=== PATIENT | male | born 1955 | race Caucasian/White ===

== ENCOUNTER → 2016-12-21 | Outpatient (CLI) | payer OTHER | LOC: FCPNEURO 21:30 | PROVIDERS: ATTEND Internal Medicine Sleep Medicine | DX: G47.31 Primary central sleep apnea (principal); G47.33 Obstructive sleep apnea (adult) (pediatric) ==

== ENCOUNTER 2017-01-17 19:19 | Emergency (ER) | payer OTHER ==
--- NOTE | 2017-01-17 19:30 | CPEKG ---
Heart Rate: 82 RR Interval: 732 P-R Interval: 208 QRSD Interval: 92 QT Interval: 376 QTC Interval: 439 P [place]: 65 QRS [place]: 54 T Wave [place]: 52 EKG Severity - ABNORMAL ECG - EKG Impression: SINUS RHYTHM EKG Impression: MULTIPLE ATRIAL PREMATURE COMPLEXES Electronically Signed By: Robert Pressley 17-Jan-2017 19:42:35
--- NOTE | 2017-01-17 19:39 | EDPHY ---
H & P Source: Patient - Personal History Current Tetanus/Diphtheria Vaccine: Unsure Current Tetanus Diphtheria and Acellular Pertussis (TDAP): Unsure - Medical/Surgical History Hx Asthma: No Hx Chronic Respiratory Disease: No Hx Diabetes: No Hx Cardiac Disease: No Hx Renal Disease: No Hx Cirrhosis: No Hx Alcoholism: No Hx HIV/AIDS: No Hx Splenectomy or Spleen Trauma: No Other PMH: back pain, anxiety - Family History Significant Family History: No pertinent family hx - Social History Smoking Status: Current every day smoker Alcohol Use: Sober Time Seen by Provider: 01/17/17 19:27 HPI/ROS: CHIEF COMPLAINT: Chest pain, nausea, abdominal pain, anxiety HISTORY OF PRESENT ILLNESS: Patient is a 61-year-old man with a history of anxiety who takes Ativan daily 1 mg morning evening for anxiety. He decided to try and taper himself off beginning on Sunday he has only been taking 0.5 mg in the evenings. He has felt more anxious and tremulous. He developed chest pain about 2 hours ago that resolved after about an hour. He denies shortness of breath. He has some nausea but has not vomited. He states that he said somewhat chronic abdominal pain. No fever. No cough. REVIEW OF SYSTEMS: Constitutional: denies: chills, fever, recent illness, recent injury EENTM: denies: blurred vision, double vision, nose congestion Respiratory: denies: cough, shortness of breath Cardiac: See HPI Gastrointestinal/Abdominal: See HPI denies: diarrhea, nausea, vomiting, blood streaked stools Genitourinary: denies: dysuria, frequency, hematuria, pain Musculoskeletal: denies: joint pain, muscle pain Skin: denies: lesions, rash, jaundice, bruising Neurological: denies: headache, numbness, paresthesia, tingling, dizziness, weakness Hematologic/Lymphatic: denies: blood clots, easy bleeding, easy bruising Immunologic/allergic: denies: HIV/AIDS, transplant EXAM: GENERAL: Tremulous, thin HEAD: Atraumatic, normocephalic. EYES: Pupils equal round and reactive to light, extraocular movements intact, sclera anicteric, conjunctiva are normal. ENT: TMs normal, nares patent, oropharynx clear without exudates. Moist mucous membranes. NECK: Normal range of motion, supple without lymphadenopathy or JVD. LUNGS: Breath sounds clear to auscultation bilaterally and equal. No wheezes rales or rhonchi. HEART: Regular rate and rhythm without murmurs, rubs or gallops. ABDOMEN: Soft, nontender, normoactive bowel sounds. No guarding, no rebound. No masses appreciated. BACK: No CVA tenderness, no spinal tenderness, step-offs or deformities EXTREMITIES: Normal range of motion, no pitting or edema. No clubbing or cyanosis. NEUROLOGICAL: Cranial nerves II through XII grossly intact. Normal speech, normal gait. 5/5 strength, normal movement in all extremities, normal sensation PSYCH: Normal mood, normal affect. SKIN: Warm, dry, normal turgor, no visible rashes or lesions. (Robert Pressley) Constitutional: Initial Vital Signs Temperature (C) 37.2 C 01/17/17 19:32 Heart Rate 88 01/17/17 19:32 Respiratory Rate 22 H 01/17/17 19:32 Blood Pressure 119/76 01/17/17 19:32 O2 Sat (%) 95 01/17/17 19:32 O2 Delivery Mode Room Air Allergies/Adverse Reactions: No Known Allergies Allergy (Verified 06/05/12 15:29) Home Medications: Medication Instructions Recorded LORazepam [Ativan 1 mg (RX)] 2 mg PO 06/05/12 Modafinil [Provigil 100 mg (RX)] 50 mg PO DAILY 06/05/12 Multivitamins [Multivitamin (*)] 06/05/12 Niacin 100 mg PO 06/05/12 Oxycodone HCl [Oxycontin] 20 mg PO 06/05/12 Paroxetine HCl [Paxil] 40 mg PO 06/05/12 QUETIAPINE FUMARATE [Seroquel] 100 mg PO 06/05/12 Medical Decision Making - Diagnostics EKG Interpretation: An EKG obtained and was read and documented in trace view. Please see trace view for full reading and report. Sinus rhythm with PACs, no acute ischemic changes (Robert Pressley) ED Course/Re-evaluation: 12:00am- Repeat troponin negative. Pt feels well enough to go home. Discussed his test results with him. Advised that he follow up with Cardiology for possible stress test and have provided him information for this. (Riguzzi,Nidhi) 8:50 p.m. the patient the has occasional palpitations with his PACs. He states that he has had PACs his entire life. I suspect that his Ativan taper may be responsible for the anxiety and shakes and chest and abdominal pain. He has no abdominal tenderness on exam. His lab work is reassuring. His x-ray is unremarkable. He does not wish to have any Ativan or benzos because he is trying to taper off. I suggested maybe a slower taper of every other day. I recommended a 4 hour delta troponin versus hospitalization for further testing. The patient agrees to a 4 hour troponin. Transfer his care to Dr. Silvestre at 11:00 p.m.. If this is negative he plans to follow up with his primary care doctor for stress testing. I stressed this should happen within 72 hours. ( Robert Pressley) Differential Diagnosis: Partial list of the Differential diagnosis considered include but were not limited to; anxiety, benzodiazepine withdrawal, acute coronary disease and although unlikely based on the history and physical exam, I also considered pneumonia, PE, appendicitis, obstruction, volvulus, biliary disease . (Robert Pressley) - Data Points Laboratory Results: Laboratory Results 01/17/17 19:32 01/17/17 19:32 Departure - Departure Disposition: Home, Routine, Self-Care Clinical Impression: Chest pain Qualifiers: Chest pain type: unspecified Qualified Code(s): R07.9 - Chest pain, unspecified Benzodiazepine withdrawal Qualifiers: Complication of substance-induced condition: uncomplicated Qualified Code(s): F13.230 - Sedative, hypnotic or anxiolytic dependence with withdrawal, uncomplicated Condition: Fair Instructions: Chest Pain (ED) Additional Instructions: Please follow up with your regular doctor in the next 1-2 days. Return to the ER if you are worse in any way. Please call Dr Collazo to arrange for a treadmill test. Referrals: Slava Saldivar DO [Primary Care Provider] - As per Instructions Femi Collazo MD [Medical Doctor] - As per Instructions
[2017-01-17 20:05] LABS: % IMMATURE GRANULYOCYTES 0.4 % (0.0-1.1); ABSOLUTE IMMATURE GRANULOCYTES 0.03 10^3/uL (0.00-0.10); ADD DIFF? NO; ADD MORPH? NO; ADD SCAN? NO; ATYPICAL LYMPHOCYTE FLAG 10 (0-99); FRAGMENT RBC FLAG 0 (0-99); HEMATOCRIT 43.1 % (40.0-51.0); HEMOGLOBIN 13.8 g/dL (13.7-17.5); LEFT SHIFT FLG 0 (0-99); LIPEMIA HEMOLYSIS FLAG 80 (0-99); MEAN CELL VOLUME 78.2 fL (81.5-99.8); MEAN PLATELET VOLUME 10.7 fL (8.7-11.7); PLATELET CLUMPS FLAG 10 (0-99); PLATELET COUNT 338 10^3/uL (150-400); RED BLOOD CELL COUNT 5.51 10^6/uL (4.40-6.38); RED CELL DISTRIBUTION WIDTH 14.3 % (11.5-15.2)
[2017-01-17 20:20] LABS: ALANINE AMINOTRANSFERASE 38 IU/L (21-72); ALBUMIN 3.7 g/dL (3.5-5.0); ALKALINE PHOSPHATASE 65 IU/L (38-126); ANION GAP 13 mEq/L (8-16); ASPARTATE AMINOTRANSFERASE 15 IU/L (17-59); BILIRUBIN-CONJUGATED 0.4 mg/dL (0.0-0.5); BILIRUBIN-UNCONJUGATED 0.6 mg/dL (0.0-1.1); CALCIUM 9.1 mg/dL (8.5-10.4); CARBON DIOXIDE 25 mEq/l (22-31); CHLORIDE 99 mEq/L (97-110); CREATININE 0.8 mg/dL (0.7-1.3); GLOMERULAR FILTRATION RATE > 60; GLUCOSE 96 mg/dL (70-100); POTASSIUM 4.1 mEq/L (3.5-5.2); SODIUM 137 mEq/L (134-144)
[2017-01-17 20:31] LABS: TROPONIN I < 0.012 ng/mL (0.000-0.034)
[2017-01-17 20:44] VITALS: O2SAT 90
[2017-01-17 20:48] VITALS: RESP 18; TEMP 98.2
[2017-01-17 23:46] VITALS: BP 113/71; PULSE 66
== END 2017-01-18 00:18 | disposition home or self-care (01) ==
LOC: CED 19:19
DX: R07.9 Chest pain, unspecified (principal); F13.230 Sedative, hypnotic or anxiolytic dependence with withdrawal, uncomplicated; F17.200 Nicotine dependence, unspecified, uncomplicated
CPT/HCPCS: 71020-PO; 80048-PO; 80076-PO; 83690-PO; 84484-PO; 85025-PO; 85378-PO

== ENCOUNTER → 2017-03-13 | Outpatient (CLI) | payer OTHER | LOC: CIMAGING 08:43 | PROVIDERS: ATTEND Internal Medicine | DX: R10.30 Lower abdominal pain, unspecified (principal); I70.0 Atherosclerosis of aorta | CPT/HCPCS: 76700-PO ==

== ENCOUNTER → 2017-03-14 | Outpatient (CLI) | payer OTHER | LOC: BHFA 16:00 | PROVIDERS: ATTEND Internal Medicine | DX: I47.1 Supraventricular tachycardia (principal) ==

== ENCOUNTER → 2017-03-21 | Outpatient (CLI) | payer OTHER | LOC: BHFA 13:30 | PROVIDERS: ATTEND Internal Medicine Cardiovascular Disease | DX: R07.9 Chest pain, unspecified (principal); R00.2 Palpitations | CPT/HCPCS: 78452; 93017; A9500 ==

== ENCOUNTER → 2017-03-28 | Outpatient (CLI) | payer OTHER ==
[~2017-03-28] MED LIST: IOPAMIDOL (ISOVUE-300) 100 ML BTL ONE
== END ==
LOC: CIMAGING 13:08
PROVIDERS: ATTEND Internal Medicine
DX: K57.30 Diverticulosis of large intestine without perforation or abscess without bleeding (principal)
CPT/HCPCS: 74177; Q9967

== ENCOUNTER → 2017-04-09 | Outpatient (CLI) | payer OTHER | LOC: FIMAGING 09:21 | PROVIDERS: ATTEND Internal Medicine | DX: R93.3 Abnormal findings on diagnostic imaging of other parts of digestive tract (principal); R11.2 Nausea with vomiting, unspecified ==